=== PATIENT | male | born 1990 | race African-American/Black ===

== ENCOUNTER 2018-03-24 16:11 | Emergency (ER) | payer MEDICAID, OTHER ==
[~2018-03-24] VITALS: Ht 170.2 cm; Wt 69.0 kg
[2018-03-24 16:51] VITALS: BP 124/81
== END 2018-03-24 17:28 | disposition home or self-care (01) ==
LOC: ED 17:05
DX: S63.641A Sprain of metacarpophalangeal joint of right thumb, initial encounter (principal); F17.200 Nicotine dependence, unspecified, uncomplicated; X58.XXXA Exposure to other specified factors, initial encounter; Y93.89 Activity, other specified; Y92.69 Other specified industrial and construction area as the place of occurrence of the external cause; Y99.8 Other external cause status
CPT/HCPCS: 99284

== ENCOUNTER 2019-03-20 11:16 | Emergency (ER) | payer OTHER ==
[~2019-03-20] VITALS: Ht 170.2 cm; Wt 62.2 kg
[2019-03-20 11:44] VITALS: BP 113/76
== END 2019-03-20 13:34 | disposition home or self-care (01) ==
LOC: ED 12:45
DX: A56.8 Sexually transmitted chlamydial infection of other sites (principal); A54.9 Gonococcal infection, unspecified; R10.9 Unspecified abdominal pain; M25.552 Pain in left hip; F17.200 Nicotine dependence, unspecified, uncomplicated
CPT/HCPCS: 87491; 87591; 99283

== ENCOUNTER 2020-07-18 07:35 | Emergency (ER) | payer OTHER ==
[~2020-07-18] VITALS: Ht 170.2 cm; Wt 62.8 kg
[2020-07-18 07:39] VITALS: BP 161/102
[2020-07-18] MEDS ORDERED: AZITHROMYCIN 250 MG TABLET ONE (08:22)
[2020-07-18] MEDS ORDERED: CEFTRIAXONE 250 MG ONE (08:22)
[2020-07-18] MEDS ORDERED: AZITHROMYCIN 500 MG TABLET PO ONE (08:30)
[2020-07-18] MEDS ORDERED: CEFTRIAXONE 250 MG IM ONE (08:30)
== END 2020-07-18 08:49 | disposition home or self-care (01) ==
LOC: ED 08:43
DX: N34.2 Other urethritis (principal); R30.0 Dysuria; R36.9 Urethral discharge, unspecified
CPT/HCPCS: 87491; 87591; 96372; 99283; J0696

== ENCOUNTER 2020-10-04 07:28 | Emergency (ER) | payer OTHER ==
[~2020-10-04] VITALS: Ht 170.2 cm; Wt 62.7 kg
[2020-10-04 07:33] VITALS: BP 146/91
[2020-10-04 09:03] LABS: MICROSCOPIC INDICATED
--- NOTE | 2020-10-04 09:59 | NUR ---
Patient/Caregiver given discharge instructions and they have confirmed that they understand the instructions. Patient ambulatory with steady gait.
== END 2020-10-04 10:00 | disposition home or self-care (01) ==
LOC: ED 08:10
DX: E86.0 Dehydration (principal); R10.30 Lower abdominal pain, unspecified
CPT/HCPCS: 81001; 99283